=== PATIENT | male | born 1975 | race Caucasian/White ===

== ENCOUNTER 2020-11-12 08:29 | Outpatient (REF) | payer OTHER, SELFPAY ==
[2020-11-12 08:53] LABS: COVID-19 Test Negative (Negative)
== END 2020-11-12 08:30 | disposition home or self-care (01) ==
LOC: HO.EMPCOV 08:29
PROVIDERS: PCP Internal Medicine; Visit Provider Internal Medicine
DX: Z20.822 Contact with and (suspected) exposure to COVID-19 (principal)
CPT/HCPCS: 36415; 87635; C9803

== ENCOUNTER → 2021-01-18 09:42 | Outpatient (BNVA) | payer OTHER, SELFPAY | PROVIDERS: PCP Physician Assistant Medical; Visit Provider Internal Medicine | DX: I82.409 Acute embolism and thrombosis of unspecified deep veins of unspecified lower extremity (principal); Z51.81 Encounter for therapeutic drug level monitoring; Z79.01 Long term (current) use of anticoagulants | CPT/HCPCS: 85610; 99211 ==

== ENCOUNTER 2021-02-12 12:13 | Outpatient (REF) | payer OTHER, SELFPAY | END 2021-02-12 12:14 | disposition home or self-care (01) | LOC: HO.EMPCOV 12:13 | PROVIDERS: Visit Provider Internal Medicine | DX: Z20.822 Contact with and (suspected) exposure to COVID-19 (principal) | CPT/HCPCS: C9803; U0003; U0005 ==

== ENCOUNTER 2024-02-26 08:52 | Outpatient (AMB) | payer OTHER, SELFPAY ==
[2024-02-26 09:01] LABS: Prothrombin Time Whole Bld POC 13.1 sec (11.1-13.5); ~PT, ~INR - Anti Coag Clinic 1.1 (0.9-1.1)
--- NOTE | 2024-02-26 09:21 | MHC.OFFVISCO ---
Intake Intake Visit Reasons: Anticoagulation Medication List - Last Reconciled 02/26/24 by Laina Godoy RN albuterol sulfate 90 mcg/actuation 2 inhalations inhalation Q6H PRN 30 days apixaban (Eliquis) 5 mg PO BID 30 days fluoride (sodium) 1.1% PO BEDTIME warfarin 6 mg See Protocol PO DAILY 90 days Nursing Note Patient Status: INR 1.1 - pt keeps INR in lower range/Pt MD manages his care-seeking PCP/ came today because he has been on antbxs for URI, completing today, feeling better- it was explained that antbx can have a delayed on set in raising the INR, he is concerned with left leg having possible superficial phlebitis and may start a DOAC, informational brouchers regarding Eliquis and Xarelto given. Enc f/u with Hem/Once Medications and supplements reviewed Medications or supplements: MD to manage Diet: good Denies any signs and symptoms of bleeding or clotting or unusual bruising Bleeding, bruising, clotting discussed Nutritional guidance given: eat a mix of fruits and vegetables Dose: per selft - INR values explained when starting DOACs 2.0 or less for Eliquis, 3.0 or less for Xarelto F/U INR Date : prn patient needs?? Patient verbalizing understanding of instructions given. Coding Level of Care Code Est Patient Level 1 Diagnoses Current use of anticoagulant therapy Z79.01 Assessment & Plan Assessment & Plan (1) Current use of anticoagulant therapy: Code(s): Z79.01 - intermediate teacher (current) use of anticoagulants Category: Medical
== END 2024-02-26 09:31 | disposition home or self-care (01) ==
LOC: HO.ACS 08:52
PROVIDERS: PCP Physician Assistant Medical; Visit Provider Internal Medicine
DX: Z79.01 Long term (current) use of anticoagulants (principal)

== ENCOUNTER → 2024-02-26 08:52 | Outpatient (BNVA) | payer OTHER, SELFPAY | PROVIDERS: PCP Physician Assistant Medical; Visit Provider Internal Medicine | DX: Z51.81 Encounter for therapeutic drug level monitoring (principal); Z79.01 Long term (current) use of anticoagulants | CPT/HCPCS: 85610; 99211 ==

== ENCOUNTER 2024-11-06 13:26 | Outpatient (RCR) | payer OTHER, SELFPAY ==
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
== END 2024-11-06 15:24 | disposition home or self-care (01) ==
LOC: HO.PT 13:26
PROVIDERS: Visit Provider Physician Assistant Medical
DX: M54.2 Cervicalgia (principal); S13.4XXD Sprain of ligaments of cervical spine, subsequent encounter; V89.2XXD Person injured in unspecified motor-vehicle accident, traffic, subsequent encounter
CPT/HCPCS: 97110; 97161

== ENCOUNTER 2025-10-13 08:04 | Outpatient (REF) | payer OTHER, SELFPAY ==
--- NOTE | ~2025-10-13 | XR_ITS ---
EXAMINATION: X-ray thoracic spine X-ray lumbar spine CLINICAL INFORMATION: Low back pain COMPARISON: None TECHNIQUE: Thoracic spine 3 views. Lumbar spine 3 views. FINDINGS: Thoracic spine: Bone mineralization is decreased. Levoconvex curvature of the lumbar spine, with dextroconvex curvature at the thoracolumbar junction. The upper thoracic vertebral bodies are obscured on the lateral projection. In the visualized thoracic spine, no acute fractures identified. Multilevel mild spondylosis. No suspicious bony lesion. No suspicious finding in the visualized lung. Thoracic spine: Bone mineralization is decreased. Dextro convex fracture of the thoracal lumbar junction. Vertebral body heights are maintained. No evidence of acute fracture. Disc spaces are maintained. Mild facet degeneration. No abnormal soft tissue calcification. SI joints are symmetric. XR/XR lumbar spine 2-3V IMPRESSION: Thoracic spine: 1. Upper thoracic vertebral bodies are obscured on the lateral projection. 2. No acute findings 3. Mild spondylosis Lumbar spine: 1. No acute findings 2. Mild facet degeneration. Electronically signed by: Jonel Marquez MD 10/14/2025 07:35 AM EST
--- NOTE | ~2025-10-13 | XR_ITS ---
EXAMINATION: X-ray thoracic spine X-ray lumbar spine CLINICAL INFORMATION: Low back pain COMPARISON: None TECHNIQUE: Thoracic spine 3 views. Lumbar spine 3 views. FINDINGS: Thoracic spine: Bone mineralization is decreased. Levoconvex curvature of the lumbar spine, with dextroconvex curvature at the thoracolumbar junction. The upper thoracic vertebral bodies are obscured on the lateral projection. In the visualized thoracic spine, no acute fractures identified. Multilevel mild spondylosis. No suspicious bony lesion. No suspicious finding in the visualized lung. Thoracic spine: Bone mineralization is decreased. Dextro convex fracture of the thoracal lumbar junction. Vertebral body heights are maintained. No evidence of acute fracture. Disc spaces are maintained. Mild facet degeneration. No abnormal soft tissue calcification. SI joints are symmetric. XR/XR thoracic spine 3V IMPRESSION: Thoracic spine: 1. Upper thoracic vertebral bodies are obscured on the lateral projection. 2. No acute findings 3. Mild spondylosis Lumbar spine: 1. No acute findings 2. Mild facet degeneration. Electronically signed by: Jonel Marquez MD 10/14/2025 07:35 AM EST
== END 2025-10-13 08:05 | disposition home or self-care (01) ==
LOC: HO.XRAY 08:04
PROVIDERS: PCP Student in an Organized Health Care Education/Training Program; Visit Provider Student in an Organized Health Care Education/Training Program
DX: Z28.89 Immunization not carried out for other reason (principal); G89.29 Other chronic pain; M54.50 Low back pain, unspecified; J45.20 Mild intermittent asthma, uncomplicated; G47.33 Obstructive sleep apnea (adult) (pediatric); E66.3 Overweight; Z86.72 Personal history of thrombophlebitis; Z86.718 Personal history of other venous thrombosis and embolism; Z79.01 Long term (current) use of anticoagulants; Z68.27 Body mass index [BMI] 27.0-27.9, adult
CPT/HCPCS: 72072; 72100; 90471; 96127

== ENCOUNTER 2025-10-13 08:04 | Outpatient (AMB) | payer OTHER, SELFPAY ==
--- NOTE | 2025-10-13 08:09 | A.OFFPC_ITS ---
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 Accompanied by: Self / Same As Patient Allergies No Known Allergies Allergy (Verified 10/13/25 08:09) Medication List - Last Reconciled 10/13/25 by Flip Webb MD albuterol sulfate 90 mcg/actuation 2 inhalations inhalation Q6H PRN 30 days [Portable INR machine As directed] warfarin 6 mg See Protocol PO DAILY 90 days Tobacco use date assessed: 10/13/25 Dental Screening Dental Screen Date: 10/13/25 Did you have a dental visit in the last 12 months?: Yes Was dental information given to patient?: Patient has dentist HPI HPI Comments History of Present Illness Details History of Present Illness The patient is a 50 year old male presenting for a general health evaluation and to establish care, as he has not seen a physician in approximately 10-15 years. Unprovoked Deep Vein Thrombosis: The patient reports a history of unprovoked blood clots that started in his arm and then his leg over 10 years ago. He was evaluated by two hematologists, and workup was negative for malignancy. The only abnormal finding was a slightly elevated Factor VIII level. An abdominal CT scan at that time showed possible thickening of the large colon, suggestive of colitis, but he did not follow up on this finding. He has been prescribing his own Coumadin since the diagnosis, maintaining a subtherapeutic INR of around 1.3-1.5. He reports he has not checked his INR in over a year. He has a history of phlebitis associated with blood draws, which makes him hesitant to get lab work done. Back Pain: The patient reports injuring his back in February while lifting a generator, which initially improved but then he re-injured it. He describes the current symptom as stiffness and aching in the lower back, which is not constant but requires him to be mindful of his movements. He denies current numbness but recalls having some numbness in his left leg when the injury first occurred. Motrin and Tylenol have been helpful for the pain, and he has been working on strengthening his core. The back pain has limited his ability to run. Mild Intermittent Asthma: The patient reports a history of mild asthma. He has no history of intubation, exacerbations, or steroid use. He keeps an albuterol inhaler on hand for emergencies, such as when he has a cold, but rarely uses it. Obstructive Sleep Apnea: The patient has a history of mild obstructive sleep apnea, diagnosed via a home sleep study about 10 years ago. He was prescribed a CPAP machine, which he still has but does not use, reporting that he wakes up feeling fine without it. He also has a mouthguard that he is not using. Preventative Care: The patient is 50 years old and has never had a colonoscopy. He denies any personal or family history of cancer. Surgical History: - No surgical history reported. Medications: - Coumadin: Self-prescribed and managed for history of blood clots, maintaining a target INR of 1.3-1.5. - Albuterol inhaler: As needed for asthm a. - Motrin: As needed for back pain. - Tylenol: As needed for back pain. Social History: - Employment: Patient is a multi operation machine operator . - Tobacco Use: Denies any history of smo sharyn. - Alcohol Use: Denies regular alcohol co nsumption. - Illicit Drug Use: Denies any history o f drug use. - Exercise: He enjoys running and has do ne so since high school, but this is currently limited by his back pain. - Sexual History: Reports being intimate with his . Family History: - Asthma: Positive. - Cancer: Negative in immediate family. - Sarcoidosis: Brother diagnosed with sa rcoidosis. - Hepatitis C: Mother contracted hepatit is C from a blood transfusion. - Prostate Cancer: Negative. Diagnostic Results: - Factor VIII level: Reported as slightl y elevated over 10 years ago. - Abdominal CT Scan: Performed over 10 y ears ago, showed possible thickening of the large colon suggestive of colitis. - Home Sleep Study: Performed over 10 ye ars ago, showed mild sleep apnea. Past Medical History - Unprovoked deep vein thrombosis: Diagn osed over 10 years ago, started in the arm and leg. - Mild intermittent asthma. - Mild obstructive sleep apnea: Diagnose d via home sleep study over 10 years ago. - Back injury: Occurred in summer of the current year from lifting a generator. - Phlebitis: Associated with blood draws . - Hospitalizations: Never hospitalized f or his blood clots. Health Maintenance - Will order comprehensive laboratory te sts including CBC, CMP, HbA1c, lipid panel, thyroid function, vitamin B12, vitamin D, folate, and hepatitis B and C screening. - Will order a Cologuard test for colon cancer screening, as the patient is 50 and has never been screened. - Recommended the patient have his blood drawn at the hospital where a butterfly needle can be used to minimize the risk of phlebitis. - Follow-up in two weeks or as needed to review results. [facility] Medical History (Updated 10/13/25 @ 10:38 by Flip Webb MD) History of phlebitis Overweight (BMI 25.0-29.9) IRENE (obstructive sleep apnea) Mild intermittent asthma History of DVT (deep vein thrombosis) Chronic lower back pain Family History (Updated 10/13/25 @ 08:18 by Corry Cornejo [facility]) Mother Asthma Father Asthma Social History Housing: House Patient Tobacco Use Status: Never used Tobacco e-Cigarette/Vaping Use: Never Used service: No Current occupational status: employed Cognitive needs: No Hearing needs: No Vision needs: Yes (glasses) Questionnaire PHQ-9 Over the last 2 weeks, how often have you been bothered by any of the following problems? 1. Little interest or pleasure in doing things: not at all 2. Feeling down, depressed, or hopeless: not at all 3. Trouble falling or staying asleep, or sleeping too much: several days 4. Feeling tired or having little energy: several days 5. Poor appetite or overeating: not at all 6. Feeling bad about yourself - or that you are a failure or have let yourself or your family down: not at all 7. Trouble concentrating on things, such as reading the newspaper or watching television: not at all 8. Moving or speaking so slowly that other people could have noticed. Or the opposite - being so fidgety or restless that you have been moving around a lot more than usual: not at all 9. Thoughts that you would be better off or of hurting yourself in some way: not at all Total score: 2 Depression Screening Interpretation: Negative Depression Screening Done: Yes Source: Developed by Drs. Marty Ortega, Yudy Duval, Lasha Uriarte and colleagues, with an educational kwadwo from [employer]. Thrive Questionnaire Date Thrive assessed: 10/13/25 I am a: Patient What is your living situation today?: I have a steady place to live Within the past 12 months, did the food you bought not last and you didn't have the money to get more?: Never true Within the past 12 months, did you worry whether your food would run out before you got money to buy more?: Never true Do you have trouble paying for medicines?: No Do you have trouble getting transportation to medical appointments?: No Do you have trouble paying your heating and electricity bill?: No Do you have trouble taking care of your child, family member or friend?: No Do you have trouble with day-to-day activities such as bathing, preparing meals, shopping, managing finances, etc.?: No Are you currently unemployed and looking for a job?: No Are you interested in more education?: Yes Please select the resources that you would like help with: None Currently or been in a relationship where the following occur: No concerns reported THRIVE Score: 0 AUDIT C Alcohol Use Questionnaire (AUDIT-C) 1. How often do you have a drink containing alcohol?: Monthly or less 2. How many drinks containing alcohol do you have on a typical day when you are drinking?: 1 or 2 3. How often do you have six or more drinks on one occasion?: Never Total Score: 1 YOLANDA-7 AMB Questionnaire YOLANDA-7 Date YOLANDA - 7 assessed: 10/13/25 Feeling nervous, anxious, or on edge: 0 = Not at all Not being able to stop or control worryin = Not at all Worrying too much about different things: 0 = Not at all Trouble relaxin = Not at all Being so restless that it is hard to sit still: 0 = Not at all Becoming easily annoyed or irritable: 0 = Not at all Feeling afraid as if something awful might happen: 0 = Not at all Total YOLANDA-7 score (0-4 normal; 5-9 mild; 10-14 moderate; 15-21 severe): 0 Source: Developed by Drs. Marty Ortega, Yudy Duval, Lasha Uriarte and colleagues, with an educational kwadwo from [employer]. Review of Systems Narrative Review of Systems - General: Denies new concerns. - Respiratory: Reports a history of mild asthma but denies recent exacerbations or steroid use. - Cardiovascular: Reports a history of unprovoked blood clots in his arm and leg, and associated phlebitis with venipuncture. - Musculoskeletal: Reports intermittent back stiffness and achiness after an injury; he is able to put on his socks but must be mindful of movements. Denies needing assistance. - Neurological: Denies current numbness but reports a history of temporary numbn ess in his left leg following his back injury. - Genitourinary: Reports a slower urinary stream but denies it being problematic; urination is otherwise okay. - Gastrointestinal: Reports bowel movements are fine. - Constitutional: Reports sleep is pretty decent. 10-point ROS reviewed and negative except as noted in HPI Physical exam (Primary Care) BMI result Body Mass Index 27.3 Tobacco/Smoking Status: Tobacco use Status Tobacco use date assessed 10/13/25 10/13/25 08:11 Patient Tobacco Use Status Never used Tobacco 10/13/25 08:11 e-Cigarette/Vaping Use Never Used 10/13/25 08:11 PHQ-9: PHQ-9 Score PHQ-9: Total score 2 10/13/25 08:20 Depression Screening Interpretation: Negative Thrive Assessment: Date of Thrive Assessment Date Thrive assessed 10/13/25 10/13/25 08:11 Currently or been in a relationship where the following occur: No concerns reported Narrative Physical Exam General: Well-appearing, in no acute distress. Vital signs: Within normal limits. HEENT: Normocephalic, atraumatic. PERRLA, EOMI. Conjunctiva clear, sclera anic teric. Oropharynx clear, mucous membranes moist. TMs intact bilaterally. Neck: Supple, no lymphadenopathy, no thyromegaly, no JVD or carotid bruits. Cardiovascular: RRR, normal S1/S2, no murmurs, rubs, or gallops. Peripheral pulses 2+ and symmetric. No edema. Respiratory: Lungs clear to auscultation bilaterally, no wheezes, rales, or rhonchi. Normal effort. Abdomen: Soft, non-tender, non-distended. Normoactive bowel sounds. No hepatosplenomegaly, no masses. MSK: Full range of motion, no joint swelling or deformity. Normal gait. Noted stiffness in the back, particularly in the lumbar region, with some achiness and occasional numbness in the left leg. Skin: Warm, dry, intact. No rashes, lesions, or pallor. Neuro: Alert and oriented x3. Cranial nerves II-XII intact. Strength 5/5 throughout. Sensation intact. Reflexes 2+ symmetric. Normal coordination and gait. Psych: Appropriate mood and affect. Normal judgment and insight. Office Procedures Flu Questionnaire Does the patient have a severe egg allergy?: No Does the patient have severe life threatening allergies?: No Does the patient have a fever or illness today?: No Has the patient ever had Guillain-Pineland Syndrome?: No Has the patient ever had any past reaction to a flu shot?: No Immunizations Fluarix [id number] (PF) 45 mcg (15 mcg x 3)/0.5 mL IM syringe Performing Provider: Flip Webb MD Performing Location: [facility] Documented (not given) by: Corry Cornejo CMA on 10/13/25 08:21 Reason Not Given: Received Previously Coding Level of Care Code New Pt Level 4 (14542) Add On Problem Visit Only Diagnoses History of DVT (deep vein thrombosis) Z86.718 Current use of anticoagulant therapy Z79.01 Chronic lower back pain M54.50; G89.29 Mild intermittent asthma J45.20 IRENE (obstructive sleep apnea) G47.33 Overweight (BMI 25.0-29.9) E66.3 History of phlebitis Z86.72 Assessment & Plan Assessment & Plan (1) History of DVT (deep vein thrombosis): Code(s): Z86.718 - Personal history of other venous thrombosis and embolism Category: Medical (2) Current use of anticoagulant therapy: Code(s): Z79.01 - intermediate project manager (current) use of anticoagulants Category: Medical (3) Chronic lower back pain: Code(s): M54.50 - Low back pain, unspecified; G89.29 - Other chronic pain Category: Medical (4) Mild intermittent asthma: Code(s): J45.20 - Mild intermittent asthma, uncomplicated Category: Medical (5) IRENE (obstructive sleep apnea): Code(s): G47.33 - Obstructive sleep apnea (adult) (pediatric) Category: Medical (6) Overweight (BMI 25.0-29.9): Code(s): E66.3 - Overweight Category: Medical (7) History of phlebitis: Code(s): Z86.72 - Personal history of thrombophlebitis Category: Medical Plan Consent Patient was informed and verbally consented to the use of an ambient scribe for clinic note documentation during this visit. Plan 1. Chronic Back Pain - Will order X-rays of the thoracic and lumbar spine to evaluate for underlying pathology. - Will place a referral for physical therapy. 2. History Of Deep Vein Thrombosis On Coumadin - The patient is self-managing his Coumadin at a subtherapeutic dose and has not checked his INR in over a year. - Discussed the option of switching to a direct oral anticoagulant (DOAC) like apixaban to avoid monitoring, but the patient prefers to remain on Coumadin as it has been working for him. - Discussed obtaining a home INR monitor for self-testing in the future. - Will monitor INR as part of the initial lab work. 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 We reviewed his significant medical history, including unprovoked DVT, mild asthma, and recent onset of back pain. I explained the plan for a comprehensive workup, including a full panel of blood tests, to get a baseline of his health status. I discussed the importance of colon cancer screening at his age and offered the option of Cologuard, a non- invasive test valid for three years, which he agreed to. For his back pain, I recommended thoracic and lumbar spine X-rays and a referral to physical therapy, which he was agreeable to. We discussed his Coumadin-management, and I offered to switch him to a DOAC to simplify his regimen, but he preferred to continue with Coumadin. I acknowledged his concern about phlebitis and recommended having his labs drawn at the hospital with a butterfly needle. The patient understood the plan and agreed to follow-up to review the results. Patient Instructions - Please go to the lab to have your blood drawn for the ordered tests. You may want to go to the hospital lab and request they use a small butterfly needle to reduce the risk of a blood clot or inflammation in the vein. - You will receive a Cologuard kit at home for colon cancer screening. Please follow the instructions to collect the stool sample and mail it back. - Please go for X-rays of your mid and lower back as ordered. - We have put in a referral for physical therapy to help with your back pain. - Continue taking your current medications as you have been. - Please schedule a follow-up appointment in about two weeks to review the results of your tests, or contact me if you have any questions or concerns. 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 His main issues are a history of unprovoked DVT, chronic back pain, and mild asthma. Given the decade-long interval since his last evaluation, the primary goal of this visit is to perform a comprehensive health assessment. A comprehensive lab panel is necessary to establish a new baseline and screen for common chronic conditions. This includes a CBC, CMP, A1c, lipids, thyroid, and vitamin levels. Given his Coumadin use without recent monitoring, an INR is a critical part of this panel. For his back pain, which started after a lifting injury, imaging is warranted to rule out structural issues. Thoracic and lumbar X-rays are a reasonable first step. A referral for physical therapy is also appropriate to address the reported stiffness and improve core strength, which he has already started working on. Regarding anticoagulation, the patient's self-management of Coumadin at a subtherapeutic level is a concern. While a DOAC was offered as a safer and more convenient alternative, he expressed a strong preference for remaining on Coumadin. He is educated on the risks and benefits. We will defer this change for now but will monitor his INR and revisit this discussion. A home INR monitor is a potential future step to improve monitoring compliance. For health maintenance, the patient is overdue for colon cancer screening. Given his low-risk status (no family history), a non-invasive stool-based test like Cologuard is an appropriate and convenient option, which he accepted. This approach increases the likelihood of compliance. Follow-up is planned to review all results and adjust the care plan accordingly. Total Time Statement 30 min Total time spent caring for the patient today includes pre-visit chart review, documentation, review of laboratory and diagnostic imaging results, medication reconciliation, medically necessary evaluation, counseling on diagnoses, care coordination, ordering appropriate tests and medications, review of tests performed by other providers, reporting test results to the patient, and communication with other healthcare providers. Orders: Orders Influenza [id number] Immunization Today Z23 - Encounter for immunization Syphilis Screen Today Z79.01 - correction (current) use of anticoagulants Hepatitis B Surface Antibody Today Z79.01 - correction (current) use of anticoagulants Vitamin D 25-OH (D2 and D3) Today Z79.01 - intermediate project manager (current) use of anticoagulants XR thoracic spine 3V Today G89.29 - Other chronic pain, M54.50 - Low back pain, unspecified PT Evaluation and Treatment Today G89.29 - Other chronic pain, M54.50 - Low back pain, unspecified Complete Blood Count Auto Diff Today Z79.01 - intermediate project manager (current) use of anticoagulants Hepatitis B Surface Antigen Today Z79.01 - intermediate project manager (current) use of anticoagulants Comprehensive Met. Panel Today Z79.01 - intermediate project manager (current) use of anticoagulants Hepatitis C Antibody Today Z79.01 - correction (current) use of anticoagulants TSH reflex Free T4 Today Z79.01 - intermediate project manager (current) use of anticoagulants HIV Ab/Ag Today Z79.01 - intermediate project manager (current) use of anticoagulants UA CC w/rflx Micro + Cult Today Z79.01 - intermediate project manager (current) use of anticoagulants Lipid Panel Today Z79.01 - correction (current) use of anticoagulants Vitamin B12 and Folate Today Z79.01 - correction (current) use of anticoagulants Hemoglobin A1c Today Z79.01 - intermediate project manager (current) use of anticoagulants Magnesium Today Z79.01 - correction (current) use of anticoagulants Partial Thromboplastin Time Today Z79.01 - intermediate project manager (current) use of anticoagulants Prothrombin Time INR Today Z79.01 - correction (current) use of anticoagulants XR lumbar spine 2-3V Today G89.29 - Other chronic pain, M54.50 - Low back pain, unspecified Referrals Cologuard Test Z12.11 - Encounter for screening for malignant neoplasm of colon, Z12.12 - Encounter for screening for malignant neoplasm of rectum Medications: New [Portable INR machine] As directed 1 ea 0RF Z86.718 - Personal history of other venous thrombosis and embolism
[2025-10-13 08:15] VITALS: BMI 27.3
== END 2025-10-13 09:05 | disposition home or self-care (01) ==
LOC: HO.HMCFMS 08:05
PROVIDERS: Visit Provider Student in an Organized Health Care Education/Training Program
DX: Z86.718 Personal history of other venous thrombosis and embolism (principal); Z79.01 Long term (current) use of anticoagulants; M54.50 Low back pain, unspecified; G89.29 Other chronic pain; J45.20 Mild intermittent asthma, uncomplicated; G47.33 Obstructive sleep apnea (adult) (pediatric); E66.3 Overweight; Z86.72 Personal history of thrombophlebitis; Z23 Encounter for immunization

== ENCOUNTER → 2025-10-13 11:35 | Outpatient (BNV) | payer OTHER, SELFPAY | PROVIDERS: PCP Student in an Organized Health Care Education/Training Program; Visit Provider Radiology Diagnostic Ultrasound | DX: M47.816 Spondylosis without myelopathy or radiculopathy, lumbar region (principal); M47.814 Spondylosis without myelopathy or radiculopathy, thoracic region | CPT/HCPCS: 72072; 72100 ==

== ENCOUNTER 2025-10-14 07:56 | Outpatient (REF) | payer OTHER, SELFPAY ==
[2025-10-14 08:18] LABS: MANUAL DIFF FLAG NO
[2025-10-14 08:59] LABS: Hematocrit 43.5 % (42.0-52.0); Hemoglobin 15.1 g/dl (14.0-18.0); Imm Gran Abs Auto 0.01 X10*3/uL (0.00-0.03); Imm Gran Pct Auto 0.2 % (0.0-0.4); Lymphocytes Absolute Auto 2.5 X10*3/uL (1.2-4.9); Mean Corpuscular HGB Conc 34.7 g/dl (31.0-36.0); Mean Corpuscular Hemoglobin 30.9 pg (27.0-33.0); Mean Corpuscular Volume 89.0 fL (80.0-98.0); NRBC Abs Auto 0.000 X10*3/uL (0.0-0.012); NRBC Pct Auto 0.0 /100WBC (0.0-0.2); Platelet Count 193 X10*3/uL (160-400); Red Blood Count 4.89 X10*6/uL (4.60-5.80); White Blood Count 5.1 X10*3/uL (4.8-10.8)
[2025-10-14 09:04] LABS: INTERNATIONAL NORM RATIO 1.3 (0.9-1.1); Prothrombin Time 16.2 SEC (11.2-13.5)
[2025-10-14 09:06] LABS: Partial Thromboplastin Time 29.9 SEC (26.7-34.1)
[2025-10-14 09:37] LABS: Alanine Aminotransferase 44 U/L (0-40); Albumin Level 4.4 g/dL (3.5-5.0); Alkaline Phosphatase 69 U/L (39-117); Anion Gap 10 (12-20); Aspartate Amino Transferase 43 U/L (5-37); Blood Urea Nitrogen 20 mg/dL (9-16); Calcium 9.3 mg/dL (8.4-10.2); Carbon Dioxide 29 mmol/L (22-29); Chloride 102 mmol/L (96-108); Cholesterol 171 mg/dL (<200); Estimated Glomerular Filt Rate > 60; HDL Cholesterol 47 mg/dL (>40); Magnesium 1.8 mg/dL (1.6-2.6); Potassium 3.6 mmol/L (3.3-5.1); Sodium 137 mmol/L (135-145); Total Protein 7.6 g/dL (6.5-8.0); Triglycerides 89 mg/dL (<150)
[2025-10-14 09:41] LABS: Appearance Urine Clear; Glucose Urine UA Negative (Negative); PH 7.0 (5.0-9.0); Specific Gravity - Urine 1.020 (1.005-1.025)
[2025-10-14 09:46] LABS: HBS Num1 227.88 mIU/mL (0-7.99); HBsAGNum1 0.40 S/CO (0.00-0.99); Hepatitis B Surface Antigen Negative (Negative); ~Hepatitis B Surface Antibody REACTIVE (Nonreactive)
[2025-10-14 09:48] LABS: Syphilis Screen Nonreactive (Nonreactive)
[2025-10-14 09:55] LABS: HIV Num 1 0.10 S/CO (0.00-0.99); ~HepC Num1 0.25 S/CO (0.00-0.79); ~Hepatitis C Antibody Nonreactive (Nonreactive)
[2025-10-14 09:56] LABS: Folate 5.9 ng/mL (> or = 4.0); Vitamin B12 425 pg/mL (200-900)
== END 2025-10-14 07:57 | disposition home or self-care (01) ==
LOC: HO.LAB 07:56
PROVIDERS: PCP Student in an Organized Health Care Education/Training Program; Visit Provider Student in an Organized Health Care Education/Training Program
DX: Z51.81 Encounter for therapeutic drug level monitoring (principal); Z79.01 Long term (current) use of anticoagulants; Z13.1 Encounter for screening for diabetes mellitus; Z13.6 Encounter for screening for cardiovascular disorders; Z13.29 Encounter for screening for other suspected endocrine disorder
CPT/HCPCS: 36415; 80053; 80061; 81003; 82306; 82607; 82746; 83036; 83735; 84443; 85025; 85610; 85730; 86706; 86780; 86803; 87340; 87389